=== PATIENT | female | born 1960 | race African-American/Black ===

== ENCOUNTER 2017-11-24 18:05 | Inpatient (IN) | payer OTHER, MEDICAID ==
[~2017-11-24] VITALS: Ht 175.3 cm; Wt 203.7 kg
[~2017-11-24 18:05] MED LIST: ACET250T3 PO; ALBUTEROL IH; AMLO5TAB88 PO; ATOR40TA70 PO; BECL8.7A6 INH; CARV25TA47 PO; CHOL100046 PO; DICL100G16 TP; FENT1PAT4 TP; FLUT100D IH; FURO-152 PO; GLIP10TA10 PO; INSLAN SQ; LOSA100T14 PO; METF500T4 PO; METO5TAB69 PO; OXYC-23 PO; PHEN30CA3 PO; POTA10TA2 PO; VENL-180 PO; [UNRECOGNIZED DRUG - CODE] PO; [UNRECOGNIZED DRUG - CODE] TP
[2017-11-24] MEDS ORDERED: MAGNESIUM 2 G PREMIX 50 ML IV STA (18:25)
[2017-11-24] MEDS ORDERED: METHYLPREDNISOLONE SOD SUCC 125 MG/2 ML VIAL IV STA (18:25)
[2017-11-24] MEDS ORDERED: IPRATROPIUM BROMIDE (0.02%) 0.5MG/2.5ML NEB HHN STA (18:25)
[2017-11-24] MEDS ORDERED: ALBUTEROL (0.083%) 2.5MG/3ML NEB HHN STA (18:25)
[2017-11-24 18:58] LABS: BASOPHILS % 0.4 % (0.0-2.0); EOSINOPHILS % 1.1 % (0.0-5.0); HEMATOCRIT. 36.2 % (36.0-48.0); HEMOGLOBIN. 11.7 g/dL (12.0-16.0); LYMPHOCYTES % 22.3 % (20.0-50.0); MEAN CORPUSCULAR HEMOGLOBIN 29.8 pg (28.0-32.0); MEAN CORPUSCULAR VOLUME 92.2 fL (81.0-99.0); MEAN PLATELET VOLUME 7.9 fl (7.4-10.4); MONOCYTES % 11.1 % (2.0-8.0); NEUTROPHILS % 65.1 % (40.0-76.0); PLATELET 250 x1000/uL (130-400); RED BLOOD CELL COUNT 3.93 mill/uL (4.2-5.4); RED CELL DISTRIBUTION WIDTH 13.9 % (11.6-14.6)
[2017-11-24 19:01] LABS: CHLORIDE 97 mEq/L (98-107)
[2017-11-24 19:04] LABS: PARTIAL THROMBOPLASTIN TIME 25.5 sec (23.4-31.0); PROTHROMBIN TIME 10.9 sec (9.4-11.6)
[2017-11-24] MEDS ORDERED: ONDANSETRON 4MG ODT PO ONE (19:15)
[2017-11-24] MEDS ORDERED: FUROSEMIDE 40MG/4ML VIAL IVP ONE (19:15)
[2017-11-24] MEDS ORDERED: POTASSIUM CHLORIDE 20MEQ TABLET SR PO ONE (19:15)
[2017-11-24] MEDS ORDERED: OXYCODONE HCL/ACETAMINOPHEN 5/325MG TABLET PO ONE (19:15)
[2017-11-24] MEDS ORDERED: LORAZEPAM 0.5MG TABLET PO PRN (20:00)
[2017-11-24] MEDS ORDERED: GUAIFENESIN 200MG/10ML SUGAR FREE UDC PO PRN (20:00)
[2017-11-24] MEDS ORDERED: CLONIDINE 0.1MG TABLET PO PRN (20:00)
[2017-11-24] MEDS ORDERED: DIPHENHYDRAMINE 50MG/ML VIAL IV PRN (20:00)
[2017-11-24] MEDS ORDERED: MAGNESIUM/ALUMINUM HYDROXIDE/SIMETHICONE 30ML UDC PO PRN (20:00)
[2017-11-24] MEDS ORDERED: IPRATROPIUM/ALBUTEROL 0.5-3(2.5)MG/3ML NEB INH PRN (20:00)
[2017-11-24] MEDS ORDERED: NA PHOS,M-B/NA PHOS,DI-BA ENEMA 118ML PR PRN (20:00)
[2017-11-24] MEDS ORDERED: DEXTROSE 50% WATER 50ML SYRINGE IV PRN (20:00)
[2017-11-24] MEDS ORDERED: DOCUSATE SODIUM 100MG CAPSULE PO PRN (20:00)
[2017-11-24] MEDS ORDERED: ZOLPIDEM TARTRATE 5MG TABLET PO PRN (20:00)
[2017-11-24] MEDS ORDERED: ACETAMINOPHEN 325MG TABLET PO PRN (20:00)
[2017-11-24] MEDS ORDERED: TRAMADOL 50MG TABLET PO PRN (20:00)
[2017-11-24] MEDS ORDERED: NITROGLYCERIN 0.4MG TABLET SL SL PRN (20:00)
[2017-11-24 20:05] LABS: CLARITY URINE CLEAR (CLEAR); COLOR URINE YELLOW (YELLOW); KETONES URINE NEGATIVE (NEGATIVE); LEUKOCYTE ESTERASE URINE 2+ (NEGATIVE); NITRITE URINE NEGATIVE (NEGATIVE); OCCULT BLOOD URINE NEGATIVE (NEGATIVE); PH URINE >=9.0 (4.5-8.0); PROTEIN URINE TRACE (NEGATIVE); SPECIFIC GRAVITY URINE 1.019 (1.005-1.030)
[2017-11-24] MEDS ORDERED: OSELTAMIVIR 75MG CAPSULE PO ONE (21:00)
[2017-11-24 21:02] LABS: *AMPHETAMINES SCREEN URINE NEGATIVE (NEGATIVE); *BARBITURATES SCREEN URINE NEGATIVE (NEGATIVE); *BENZODIAZEPINES SCREEN URINE NEGATIVE (NEGATIVE); *COCAINE SCREEN URINE NEGATIVE (NEGATIVE)
[2017-11-24 21:03] LABS: CANNABINOID URINE SCREEN NEGATIVE (NEGATIVE); METHADONE URINE SCREEN NEGATIVE (NEGATIVE); OPIATES URINE SCREEN PRESUMTIVE POSITIVE (NEGATIVE); PHENCYCLIDINE URINE SCREEN NEGATIVE (NEGATIVE)
[2017-11-24] MEDS: MORPHINE SULFATE 4 MG/ML CPJ (NOT FOR IM USE) IV PRN (22:24)
[2017-11-24] MEDS: ONDANSETRON HCL 4MG/2ML VIAL IV PRN (22:24)
[2017-11-24 22:55] LABS: CREATINE KINASE 365 IU/L (26-192)
[2017-11-24 22:56] LABS: CREATINE KINASE MB FRACTION 3.1 ng/mL (0.5-3.6)
[2017-11-25] VITALS (13 sets, daily range): BP systolic 106–156; BP diastolic 66–93
[2017-11-25] MEDS ORDERED: LEVOFLOXACIN 500MG PREMIX 100 ML IV SCH (02:00)
[2017-11-25] MEDS ORDERED: METHYLPREDNISOLONE SOD SUCC 125 MG/2 ML VIAL IV SCH (06:00)
[2017-11-25] MEDS: BLOOD SUGAR DIAGNOSTIC STRIP TEST SCH ×4 (06:50→21:14)
[2017-11-25] MEDS: MORPHINE SULFATE 4 MG/ML CPJ (NOT FOR IM USE) IV PRN ×2 (07:04→12:35)
[2017-11-25 07:35] LABS: CREATINE KINASE 263 IU/L (26-192)
[2017-11-25 07:37] LABS: CREATINE KINASE MB FRACTION 2.2 ng/mL (0.5-3.6)
[2017-11-25] MEDS: INSULIN LISPRO 100 UNITS/ML SUBCUT SCH ×4 (08:37→21:00)
[2017-11-25] MEDS: SPIRONOLACTONE 25MG TABLET PO SCH ×2 (08:38→21:43)
[2017-11-25] MEDS: GUAIFENESIN/DM 600MG/30MG ER TAB 12HR PO SCH ×2 (08:38→21:44)
[2017-11-25] MEDS: LISINOPRIL 20MG TABLET PO SCH ×2 (08:39→21:43)
[2017-11-25] MEDS: FUROSEMIDE 40MG/4ML VIAL IVP SCH ×2 (08:39→21:42)
[2017-11-25] MEDS: ENOXAPARIN 40MG/0.4ML SYR SUBCUT SCH ×2 (08:53→21:43)
[2017-11-25] MEDS ORDERED: ASPIRIN 325MG EC TABLET PO SCH (09:00)
[2017-11-25] MEDS ORDERED: PANTOPRAZOLE SODIUM 40 MG/VIAL IV SCH (09:00)
[2017-11-25] MEDS ORDERED: OSELTAMIVIR 75MG CAPSULE PO NR (12:30)
[2017-11-25] MEDS ORDERED: BUDESONIDE 0.5MG/2ML NEB HHN SCH (13:00)
[2017-11-25] MEDS: ONDANSETRON HCL 4MG/2ML VIAL IV PRN (15:15)
[2017-11-25] MEDS ORDERED: IPRATROPIUM/ALBUTEROL 0.5-3(2.5)MG/3ML NEB HHN SCH ×2 (18:00)
[2017-11-25] MEDS ORDERED: OSELTAMIVIR 75MG CAPSULE PO SCH (21:00)
[2017-11-25] MEDS ORDERED: INSULIN GLARGINE UD 100 UNITS/ML SYR SUBCUT SCH (22:00)
== END 2017-11-26 00:05 | disposition short-term general hospital (02) | DRG 871 ==
LOC: ER 18:05 → 3WST 19:44 → EDBEDREQ 19:46 → EDBEDREQTM 19:46 → ENRESERV 20:28
PROVIDERS: ADMIT Internal Medicine; ATTEND Internal Medicine
DX: A41.9 Sepsis, unspecified organism (principal); I50.33 Acute on chronic diastolic (congestive) heart failure; J96.00 Acute respiratory failure, unspecified whether with hypoxia or hypercapnia; E44.1 Mild protein-calorie malnutrition; D64.9 Anemia, unspecified; E11.9 Type 2 diabetes mellitus without complications; E66.2 Morbid (severe) obesity with alveolar hypoventilation; J44.1 Chronic obstructive pulmonary disease with (acute) exacerbation; N39.0 Urinary tract infection, site not specified; Z68.44 Body mass index [BMI] 60.0-69.9, adult; E87.6 Hypokalemia; G47.33 Obstructive sleep apnea (adult) (pediatric); I11.0 Hypertensive heart disease with heart failure; B96.89 Other specified bacterial agents as the cause of diseases classified elsewhere; G89.4 Chronic pain syndrome; J10.1 Influenza due to other identified influenza virus with other respiratory manifestations; M19.90 Unspecified osteoarthritis, unspecified site; Z74.01 Bed confinement status; Z91.19 Patient's noncompliance with other medical treatment and regimen; Z88.8 Allergy status to other drugs, medicaments and biological substances; Z79.84 Long term (current) use of oral hypoglycemic drugs; Z79.899 Other long term (current) drug therapy; Z82.49 Family history of ischemic heart disease and other diseases of the circulatory system; Z83.3 Family history of diabetes mellitus; Z80.9 Family history of malignant neoplasm, unspecified
CPT/HCPCS: 36415; 51702; 71045; 80053; 80061; 80305; 81003; 82550; 82553; 82962; 83036; 83605; 83880; 84484; 85025; 85610; 85730; 87040; 87077; 87086; 87186; 87804; 93005; 93306; 93970; 94640; 96365; 96375; 99291; C9113; J1650; J1815; J1940; J1956; J2270; J2405; J2930; J3475; J7611; J7620; J7626; Q0162; A4315

== ENCOUNTER 2021-08-05 22:30 | Inpatient (IN) | payer OTHER ==
[~2021-08-05] VITALS: Ht 172.7 cm; Wt 185.7 kg
[~2021-08-05 22:30] MED LIST changes: -AMLO5TAB88 PO; +CARV25TA47 MT; -CARV25TA47 PO; +CHOL100046 MT; -CHOL100046 PO; -FENT1PAT4 TP; -FLUT100D IH; +FLUT9.9S BOTHNSTRLS; +FURO-151 MT; -FURO-152 PO; -GLIP10TA10 PO; -INSLAN SQ; +INSLIS SUBCUT; +INSU100I28 SQ; -LOSA100T14 PO; +LOSA25TA26 MT; -METF500T4 PO; -METO5TAB69 PO; +METO5TAB7 MT; +MORP10CA8 PO; -PHEN30CA3 PO; +POTA-189 MT; -POTA10TA2 PO; +SERT-422 PO; -VENL-180 PO; -[UNRECOGNIZED DRUG - CODE] TP
[2021-08-05] MEDS ORDERED: METHYLPREDNISOLONE SOD SUCC 125 MG/2 ML VIAL IV STA (22:43)
[2021-08-05] MEDS ORDERED: IPRATROPIUM BROMIDE (0.02%) 0.5MG/2.5ML NEB HHN STA (22:43)
[2021-08-05] MEDS ORDERED: FUROSEMIDE 40MG/4ML VIAL IV ONE (22:45)
[2021-08-05] MEDS ORDERED: MAGNESIUM 2 G PREMIX 50 ML IV ONE (22:45)
[2021-08-05] MEDS ORDERED: ALBUTEROL (0.083%) 2.5MG/3ML NEB ONE (23:04)
[2021-08-05] MEDS: ALBUTEROL (0.083%) 2.5MG/3ML NEB HHN SCH ×2 (23:04→23:30)
[2021-08-05 23:17] LABS: BASOPHILS % 0.3 % (0.0-2.0); EOSINOPHILS % 1.1 % (0.0-5.0); HEMATOCRIT. 32.1 % (36.0-48.0); LYMPHOCYTES % 20.8 % (20.0-50.0); MEAN CORPUSCULAR HEMOGLOBIN 27.2 pg (28.0-32.0); MEAN CORPUSCULAR VOLUME 87.3 fL (81.0-99.0); MEAN PLATELET VOLUME 8.3 fl (7.4-10.4); MONOCYTES % 6.5 % (2.0-8.0); NEUTROPHILS % 71.3 % (40.0-76.0); PLATELET 315 x1000/uL (130-400); RED BLOOD CELL COUNT 3.68 mill/uL (4.2-5.4); RED CELL DISTRIBUTION WIDTH 14.1 % (11.6-14.6)
[2021-08-05 23:24] LABS: CHLORIDE 100 mEq/L (98-107)
[2021-08-06] MEDS ORDERED: AZITHROMYCIN 500MG/250ML 250 ML IV NR (00:15)
[2021-08-06] MEDS ORDERED: CEFTRIAXONE 1 G PREMIX 50 ML IV NR (00:15)
[2021-08-06] MEDS: ALBUTEROL (0.083%) 2.5MG/3ML NEB HHN SCH (00:52)
[2021-08-06 04:37] LABS: BG CARBOXYHEMOGLOBIN 0.4 % (0.5-1.5); BG DEOXYHEMOGLOBIN 5.2 % (0.0-5.0); BG FRACTION INSPIRED OXYGEN 36; BG HCO3 ACT 33.6 mmol/L (22.0-26.0); BG METHEMOGLOBIN 0.3 % (0.0-1.5); BG OXYGEN SATURATION 94.8 % (92.0-98.5); BG OXYHEMOGLOBIN 94.1 % (94.0-97.0); BG PCO2 64.9 mmHg (35.0-45.0); BG PH 7.332 (7.350-7.450); BG PO2 80.3 mmHg (75.0-100.0); BG SAMPLE SITE RIGHT RADIAL; BG TOTAL HEMOGLOBIN 11.4 g/dL (12.0-18.0); BG VENT MODE NASAL CANNULA
[2021-08-06] MEDS ORDERED: NALOXONE HCL 0.4MG/ML VIAL IV PRN (07:15)
[2021-08-06] MEDS ORDERED: CLONIDINE 0.1MG TABLET PO PRN (07:15)
[2021-08-06] MEDS ORDERED: DOCUSATE SODIUM 100MG CAPSULE PO PRN (07:15)
[2021-08-06] MEDS ORDERED: ACETAMINOPHEN 325MG TABLET PO PRN (07:15)
[2021-08-06] MEDS ORDERED: MAGNESIUM/ALUMINUM HYDROXIDE/SIMETHICONE 30ML UDC PO PRN (07:15)
[2021-08-06] MEDS ORDERED: ONDANSETRON HCL 4MG/2ML INJ IV PRN (07:15)
[2021-08-06] MEDS ORDERED: LEVOFLOXACIN 500MG PREMIX 100 ML IV SCH (07:30)
[2021-08-06] MEDS: FUROSEMIDE 40MG/4ML VIAL IV SCH ×2 (09:10→17:55)
[2021-08-06] MEDS ORDERED: DEXTROSE 50% WATER 50ML SYRINGE IV PRN (09:15)
[2021-08-06] MEDS: AMLODIPINE 10MG TABLET PO SCH (09:17)
[2021-08-06] MEDS: ENOXAPARIN 40MG/0.4ML SYR SUBCUT SCH ×2 (10:56→21:57)
[2021-08-06] MEDS: BLOOD SUGAR DIAGNOSTIC STRIP TEST SCH ×3 (12:16→21:00)
[2021-08-06] MEDS ORDERED: INSULIN REGULAR (HUMULIN R) 300UNITS/3ML VIAL SUBCUT NR (12:30)
[2021-08-06] MEDS: HYDROCODONE/ACETAMINOPHEN 5/325MG TABLET PO PRN ×2 (12:35→21:59)
[2021-08-06] MEDS ORDERED: INSULIN LISPRO (HIGH DOSE) 100 UNITS/ML SUBCUT SCH (13:20)
[2021-08-06] MEDS: LOSARTAN POTASSIUM 25 MG TABLET PO SCH (14:42)
[2021-08-06] MEDS: POTASSIUM CHLORIDE 20MEQ TABLET SR PO SCH ×2 (14:45→17:55)
[2021-08-06] MEDS: INSULIN LISPRO (HIGH DOSE) 100 UNITS/ML SUBCUT SCH ×3 (14:49→21:00)
[2021-08-06] MEDS: IPRATROPIUM/ALBUTEROL 0.5-3(2.5)MG/3ML NEB HHN PRN (15:14)
[2021-08-06] MEDS ORDERED: INSULIN GLARGINE UD 100 UNITS/ML SYR SUBCUT NR (15:15)
[2021-08-06] MEDS: ATORVASTATIN CALCIUM 40MG TABLET PO SCH (15:16)
[2021-08-06] MEDS: ACETAZOLAMIDE 250MG TABLET PO SCH (15:16)
[2021-08-06] MEDS: SERTRALINE HCL 50MG TABLET PO SCH (15:16)
[2021-08-06 17:00] VITALS: BP 141/79
[2021-08-06 18:00] VITALS: BP 141/79
[2021-08-06 20:00] VITALS: BP 164/97
[2021-08-07] VITALS: BP 131/84
[2021-08-07] MEDS: IPRATROPIUM/ALBUTEROL 0.5-3(2.5)MG/3ML NEB HHN PRN (01:37)
[2021-08-07 04:00] VITALS: BP 163/92
[2021-08-07] MEDS: HYDROCODONE/ACETAMINOPHEN 5/325MG TABLET PO PRN ×3 (05:57→23:22)
[2021-08-07 06:26] LABS: BASOPHILS % 0.4 % (0.0-2.0); EOSINOPHILS % 0.3 % (0.0-5.0); HEMATOCRIT. 30.7 % (36.0-48.0); HEMOGLOBIN. 9.9 g/dL (12.0-16.0); LYMPHOCYTES % 21.2 % (20.0-50.0); MEAN CORPUSCULAR HEMOGLOBIN 27.5 pg (28.0-32.0); MEAN CORPUSCULAR VOLUME 85.2 fL (81.0-99.0); MEAN PLATELET VOLUME 8.3 fl (7.4-10.4); MONOCYTES % 7.7 % (2.0-8.0); NEUTROPHILS % 70.4 % (40.0-76.0); PLATELET 309 x1000/uL (130-400); RED CELL DISTRIBUTION WIDTH 13.9 % (11.6-14.6)
[2021-08-07 06:28] LABS: CHLORIDE 99 mEq/L (98-107)
[2021-08-07 06:37] LABS: HDL CHOLESTEROL 44 mg/dL (40-59)
[2021-08-07 06:38] LABS: LDL CHOLESTEROL 102 mg/dL (5-100)
[2021-08-07] MEDS: BLOOD SUGAR DIAGNOSTIC STRIP TEST SCH ×4 (06:41→21:00)
[2021-08-07] MEDS: FUROSEMIDE 40MG/4ML VIAL IV SCH ×2 (07:10→16:37)
[2021-08-07] MEDS: INSULIN LISPRO (HIGH DOSE) 100 UNITS/ML SUBCUT SCH ×4 (07:14→23:26)
[2021-08-07 08:00] VITALS: BP 165/80
[2021-08-07] MEDS: SERTRALINE HCL 50MG TABLET PO SCH (09:31)
[2021-08-07] MEDS: ATORVASTATIN CALCIUM 40MG TABLET PO SCH (09:31)
[2021-08-07] MEDS: ENOXAPARIN 40MG/0.4ML SYR SUBCUT SCH ×2 (09:31→23:21)
[2021-08-07] MEDS: POTASSIUM CHLORIDE 20MEQ TABLET SR PO SCH ×2 (09:31→16:37)
[2021-08-07] MEDS: LOSARTAN POTASSIUM 25 MG TABLET PO SCH (09:31)
[2021-08-07] MEDS: AMLODIPINE 10MG TABLET PO SCH (09:33)
[2021-08-07] MEDS ORDERED: LIDOCAINE HCL/PF 1% 2ML VIAL ONE (10:00)
[2021-08-07 10:43] LABS: BG CARBOXYHEMOGLOBIN 0.3 % (0.5-1.5); BG DEOXYHEMOGLOBIN 5.9 % (0.0-5.0); BG FRACTION INSPIRED OXYGEN 36; BG HCO3 ACT 36.8 mmol/L (22.0-26.0); BG METHEMOGLOBIN 0.5 % (0.0-1.5); BG OXYGEN SATURATION 94.1 % (92.0-98.5); BG OXYHEMOGLOBIN 93.3 % (94.0-97.0); BG PCO2 69.1 mmHg (35.0-45.0); BG PH 7.344 (7.350-7.450); BG PO2 77.6 mmHg (75.0-100.0); BG SAMPLE SITE RIGHT RADIAL; BG TOTAL HEMOGLOBIN 11.3 g/dL (12.0-18.0); BG VENT MODE NASAL CANNULA
[2021-08-07] MEDS: LEVOFLOXACIN 750MG PREMIX 150 ML IV SCH (11:44)
[2021-08-07] MEDS: ACETAZOLAMIDE 250MG TABLET PO SCH (11:44)
[2021-08-07] MEDS: METHYLPREDNISOLONE SOD SUCC 40 MG/ML VIAL IV SCH ×2 (11:44→23:21)
[2021-08-07 12:00] VITALS: BP 154/78
[2021-08-07 16:00] VITALS: BP 157/80
[2021-08-07 20:00] VITALS: BP 184/92
[2021-08-07] MEDS ORDERED: INSULIN GLARGINE UD 100 UNITS/ML SYR SUBCUT SCH (22:00)
[2021-08-08] VITALS: BP 155/85
[2021-08-08 04:00] VITALS: BP 154/91
[2021-08-08] MEDS: BLOOD SUGAR DIAGNOSTIC STRIP TEST SCH ×3 (07:07→17:18)
[2021-08-08] MEDS: INSULIN LISPRO (HIGH DOSE) 100 UNITS/ML SUBCUT SCH ×3 (07:09→17:17)
[2021-08-08] MEDS: METHYLPREDNISOLONE SOD SUCC 40 MG/ML VIAL IV SCH ×2 (07:09→14:00)
[2021-08-08] MEDS: FUROSEMIDE 40MG/4ML VIAL IV SCH ×2 (07:09→17:15)
[2021-08-08] MEDS: LEVOFLOXACIN 750MG PREMIX 150 ML IV SCH (09:00)
[2021-08-08] MEDS: POTASSIUM CHLORIDE 20MEQ TABLET SR PO SCH ×2 (09:00→17:00)
[2021-08-08] MEDS: ENOXAPARIN 40MG/0.4ML SYR SUBCUT SCH (09:00)
[2021-08-08] MEDS: SERTRALINE HCL 50MG TABLET PO SCH (09:00)
[2021-08-08 09:15] VITALS: BP 157/83
[2021-08-08] MEDS: LOSARTAN POTASSIUM 25 MG TABLET PO SCH (10:10)
[2021-08-08] MEDS: ATORVASTATIN CALCIUM 40MG TABLET PO SCH (10:10)
[2021-08-08] MEDS: AMLODIPINE 10MG TABLET PO SCH (10:11)
[2021-08-08] MEDS: ACETAZOLAMIDE 250MG TABLET PO SCH (10:11)
[2021-08-08] MEDS ORDERED: NYSTATIN 100,000 UNITS/GM OINT 15GM TOP SCH (10:30)
[2021-08-08] MEDS: IPRATROPIUM/ALBUTEROL 0.5-3(2.5)MG/3ML NEB HHN PRN (11:29)
[2021-08-08 12:00] VITALS: BP 130/68
[2021-08-08 16:00] VITALS: BP 124/71
[2021-08-08] MEDS ORDERED: METHYLPREDNISOLONE SOD SUCC 40 MG/ML VIAL IV SCH (21:00)
== END 2021-08-08 19:40 | disposition home or self-care (01) | DRG 291 ==
LOC: ER 22:30 → 8WST 08-06 06:00 → EDBEDREQ 08-06 06:02 → ENRESERV 08-06 14:40
PROVIDERS: ADMIT Hospitalist; ATTEND Hospitalist
DX: I11.0 Hypertensive heart disease with heart failure (principal); J96.02 Acute respiratory failure with hypercapnia; E43 Unspecified severe protein-calorie malnutrition; I50.43 Acute on chronic combined systolic (congestive) and diastolic (congestive) heart failure; J96.01 Acute respiratory failure with hypoxia; J44.1 Chronic obstructive pulmonary disease with (acute) exacerbation; E66.2 Morbid (severe) obesity with alveolar hypoventilation; Z68.44 Body mass index [BMI] 60.0-69.9, adult; D63.8 Anemia in other chronic diseases classified elsewhere; E11.9 Type 2 diabetes mellitus without complications; Z20.822 Contact with and (suspected) exposure to COVID-19; I25.10 Atherosclerotic heart disease of native coronary artery without angina pectoris; Z88.8 Allergy status to other drugs, medicaments and biological substances; Z79.899 Other long term (current) drug therapy; Z79.4 Long term (current) use of insulin; Z99.81 Dependence on supplemental oxygen
CPT/HCPCS: 36415; 36600; 71045; 80053; 80061; 82375; 82805; 82962; 83605; 83880; 84484; 85025; 87426; 93005; 93306; 93970; 94640; 99291; C1893; J0456; J0696; J1650; J1815; J1940; J1956; J2920; J2930; J3475; J3490

== ENCOUNTER 2021-10-30 19:35 | Emergency (ER) | payer OTHER, MEDICAID ==
[~2021-10-30] VITALS: Ht 175.3 cm; Wt 186.0 kg
[~2021-10-30 19:35] MED LIST changes: -ALBUTEROL IH
[2021-10-30] MEDS ORDERED: ALBUTEROL (0.083%) 2.5MG/3ML NEB HHN STA (20:03)
[2021-10-30] MEDS ORDERED: IPRATROPIUM BROMIDE (0.02%) 0.5MG/2.5ML NEB HHN STA (20:03)
[2021-10-30] MEDS ORDERED: METHYLPREDNISOLONE SOD SUCC 125 MG/2 ML VIAL IV STA (20:03)
[2021-10-30 20:41] LABS: BASOPHILS % 0.4 % (0.0-2.0); EOSINOPHILS % 2.6 % (0.0-5.0); HEMATOCRIT. 30.7 % (36.0-48.0); HEMOGLOBIN. 10.1 g/dL (12.0-16.0); LYMPHOCYTES % 21.6 % (20.0-50.0); MEAN CORPUSCULAR HEMOGLOBIN 28.4 pg (28.0-32.0); MEAN CORPUSCULAR VOLUME 86.6 fL (81.0-99.0); MEAN PLATELET VOLUME 7.8 fl (7.4-10.4); MONOCYTES % 6.5 % (2.0-8.0); NEUTROPHILS % 68.9 % (40.0-76.0); PLATELET 255 x1000/uL (130-400); RED BLOOD CELL COUNT 3.55 mill/uL (4.2-5.4); RED CELL DISTRIBUTION WIDTH 14.6 % (11.6-14.6)
[2021-10-30 20:48] LABS: CHLORIDE 104 mEq/L (98-107)
[2021-10-30] MEDS ORDERED: FUROSEMIDE 40MG/4ML VIAL IVP ONE (22:30)
[2021-10-30] MEDS ORDERED: ACETAMINOPHEN 325MG TABLET PO ONE (23:15)
[2021-10-31] VITALS: BP 144/71
== END 2021-10-31 06:09 | disposition short-term general hospital (02) ==
LOC: ER 19:35
DX: J44.1 Chronic obstructive pulmonary disease with (acute) exacerbation (principal); I11.0 Hypertensive heart disease with heart failure; I50.9 Heart failure, unspecified; E11.9 Type 2 diabetes mellitus without complications; Z79.4 Long term (current) use of insulin
CPT/HCPCS: 36415; 71045; 80053; 83605; 83880; 84145; 84484; 85025; 87040; 93005; 94644; 96374; 96375; 99285; J1940; J2930

== ENCOUNTER 2021-12-01 15:09 | Emergency (ER) | payer OTHER ==
[~2021-12-01] VITALS: Ht 175.3 cm; Wt 181.0 kg
[2021-12-01] MEDS ORDERED: OMEPRAZOLE 20MG CAPSULE EXTENDED RELEASE PO ONE (15:30)
[2021-12-01] MEDS ORDERED: FUROSEMIDE 40MG/4ML VIAL IV ONE (15:30)
[2021-12-01] MEDS ORDERED: ASPIRIN 81MG TABLET PO ONE (15:30)
[2021-12-01 15:59] LABS: BASOPHILS % 0.5 % (0.0-2.0); EOSINOPHILS % 1.4 % (0.0-5.0); HEMATOCRIT. 31.8 % (36.0-48.0); HEMOGLOBIN. 10.2 g/dL (12.0-16.0); LYMPHOCYTES % 25.7 % (20.0-50.0); MEAN CORPUSCULAR HEMOGLOBIN 27.3 pg (28.0-32.0); MEAN CORPUSCULAR VOLUME 85.1 fL (81.0-99.0); MEAN PLATELET VOLUME 7.6 fl (7.4-10.4); NEUTROPHILS % 64.4 % (40.0-76.0); PLATELET 259 x1000/uL (130-400); RED BLOOD CELL COUNT 3.74 mill/uL (4.2-5.4); RED CELL DISTRIBUTION WIDTH 14.4 % (11.6-14.6)
[2021-12-01 16:05] LABS: CHLORIDE 100 mEq/L (98-107)
[2021-12-01 17:03] LABS: BG BASE EXCESS 7.5 mmol/L (-2.0-2.0); BG CARBOXYHEMOGLOBIN 0.3 % (0.5-1.5); BG DEOXYHEMOGLOBIN 3.1 % (0.0-5.0); BG FRACTION INSPIRED OXYGEN 36; BG METHEMOGLOBIN 0.4 % (0.0-1.5); BG OXYGEN SATURATION 96.9 % (92.0-98.5); BG OXYHEMOGLOBIN 96.2 % (94.0-97.0); BG PCO2 57.9 mmHg (35.0-45.0); BG PH 7.387 (7.350-7.450); BG PO2 90.8 mmHg (75.0-100.0); BG SAMPLE SITE RIGHT RADIAL; BG TOTAL HEMOGLOBIN 11.4 g/dL (12.0-18.0); BG VENT MODE NASAL CANNULA
[2021-12-01] MEDS ORDERED: NITROGLYCERIN 0.1MG/HR PATCH TOP ONE (19:30)
[2021-12-01] MEDS ORDERED: ACETAMINOPHEN WITH CODEINE 300/30MG TABLET PO ONE (21:30)
[2021-12-01] MEDS ORDERED: FUROSEMIDE 40MG/4ML VIAL IVP ONE (22:45)
[2021-12-02 01:30] VITALS: BP 150/96
== END 2021-12-02 02:00 | disposition short-term general hospital (02) ==
LOC: ER 15:09
DX: I11.0 Hypertensive heart disease with heart failure (principal); I50.9 Heart failure, unspecified; R10.13 Epigastric pain; J45.909 Unspecified asthma, uncomplicated; Z79.899 Other long term (current) drug therapy; Z20.822 Contact with and (suspected) exposure to COVID-19
CPT/HCPCS: 36415; 36600; 71045; 76705; 80053; 82375; 82805; 83690; 83880; 84484; 85025; 87426; 93005; 96374; 96376; 99291; J1940

== ENCOUNTER 2022-03-03 15:02 | Emergency (ER) | payer OTHER ==
[~2022-03-03] VITALS: Ht 165.1 cm; Wt 181.0 kg
[2022-03-03] MEDS ORDERED: METOCLOPRAMIDE HCL 10MG/2ML VIAL IV ONE (15:45)
[2022-03-03] MEDS ORDERED: DIPHENHYDRAMINE 50MG/ML VIAL IV ONE (15:45)
[2022-03-03] MEDS ORDERED: ACETAMINOPHEN 325MG TABLET PO ONE (15:45)
[2022-03-03 17:03] LABS: BASOPHILS % 0.5 % (0.0-2.0); EOSINOPHILS % 1.3 % (0.0-5.0); HEMATOCRIT. 34.4 % (36.0-48.0); HEMOGLOBIN. 10.7 g/dL (12.0-16.0); LYMPHOCYTES % 24.6 % (20.0-50.0); MEAN CORPUSCULAR VOLUME 86.9 fL (81.0-99.0); MEAN PLATELET VOLUME 8.2 fl (7.4-10.4); NEUTROPHILS % 64.6 % (40.0-76.0); PLATELET 245 x1000/uL (130-400); RED BLOOD CELL COUNT 3.96 mill/uL (4.2-5.4); RED CELL DISTRIBUTION WIDTH 15.1 % (11.6-14.6)
[2022-03-03 17:08] LABS: CHLORIDE 96 mEq/L (98-107)
[2022-03-03 17:19] LABS: ETHANOL BLOOD < 10 mg/dL
[2022-03-03] MEDS ORDERED: FUROSEMIDE 20MG/2ML VIAL IVP NR (18:45)
[2022-03-03] MEDS ORDERED: ALBU6.7H9 INH (19:20)
[2022-03-03] MEDS ORDERED: ONDA4TAB50 MT (19:20)
[2022-03-04] MEDS ORDERED: AMLODIPINE 5MG TABLET PO ONE (10:15)
[2022-03-04 10:39] VITALS: BP 156/77
== END 2022-03-04 11:44 | disposition home or self-care (01) ==
LOC: ER 15:02
DX: I11.0 Hypertensive heart disease with heart failure (principal); I50.9 Heart failure, unspecified; R19.7 Diarrhea, unspecified; R11.2 Nausea with vomiting, unspecified; D64.9 Anemia, unspecified; J44.9 Chronic obstructive pulmonary disease, unspecified; E66.9 Obesity, unspecified; Z68.44 Body mass index [BMI] 60.0-69.9, adult; Z87.891 Personal history of nicotine dependence; Z79.4 Long term (current) use of insulin
CPT/HCPCS: 36415; 70450; 71045; 74176; 80053; 80320; 83690; 83880; 84484; 85025; 93005; 96374; 96375; 99285; J1200; J1940; J2765; G0480

== ENCOUNTER 2022-04-30 14:05 | Inpatient (IN) | payer OTHER, MEDICAID ==
[~2022-04-30] VITALS: Ht 172.7 cm; Wt 169.2 kg
[~2022-04-30 14:05] MED LIST changes: +ALBU6.7H9 INH; +ONDA4TAB50 MT
[2022-04-30 14:54] LABS: BASOPHILS % 0.6 % (0.0-2.0); EOSINOPHILS % 0.7 % (0.0-5.0); HEMATOCRIT. 35.6 % (36.0-48.0); HEMOGLOBIN. 11.5 g/dL (12.0-16.0); LYMPHOCYTES % 22.4 % (20.0-50.0); MEAN CORPUSCULAR HEMOGLOBIN 28.3 pg (28.0-32.0); MEAN CORPUSCULAR VOLUME 87.9 fL (81.0-99.0); MEAN PLATELET VOLUME 8.4 fl (7.4-10.4); MONOCYTES % 5.9 % (2.0-8.0); NEUTROPHILS % 70.4 % (40.0-76.0); PLATELET 255 x1000/uL (130-400); RED BLOOD CELL COUNT 4.05 mill/uL (4.2-5.4); RED CELL DISTRIBUTION WIDTH 14.2 % (11.6-14.6)
[2022-04-30 15:00] LABS: CHLORIDE 91 mEq/L (98-107)
[2022-04-30 15:11] LABS: ETHANOL BLOOD < 10 mg/dL
[2022-04-30] MEDS ORDERED: ALBUTEROL (0.083%) 2.5MG/3ML NEB HHN ONE (15:15)
[2022-04-30] MEDS ORDERED: ALBUTEROL (0.083%) 2.5MG/3ML NEB HHN NR (15:15)
[2022-04-30] MEDS ORDERED: INSULIN REGULAR (HUMULIN R) 300UNITS/3ML VIAL SUBCUT NR (16:30)
[2022-04-30 17:16] LABS: *AMPHETAMINES SCREEN URINE NEGATIVE (NEGATIVE); *BARBITURATES SCREEN URINE NEGATIVE (NEGATIVE); *BENZODIAZEPINES SCREEN URINE NEGATIVE (NEGATIVE); *COCAINE SCREEN URINE NEGATIVE (NEGATIVE); CANNABINOID URINE SCREEN NEGATIVE (NEGATIVE); METHADONE URINE SCREEN NEGATIVE (NEGATIVE); OPIATES URINE SCREEN NEGATIVE (NEGATIVE); PHENCYCLIDINE URINE SCREEN NEGATIVE (NEGATIVE)
[2022-04-30] MEDS ORDERED: MORPHINE SULFATE 4 MG/ML CPJ (NOT FOR IM USE) IV ONE (19:45)
[2022-05-01] MEDS ORDERED: ONDANSETRON HCL 4MG/2ML INJ IV PRN (02:30)
[2022-05-01] MEDS ORDERED: HYDRALAZINE 20MG/ML VIAL IV PRN (02:30)
[2022-05-01] MEDS ORDERED: INSULIN GLARGINE 100 UNITS/ML SUBCUT SCH ×2 (02:30→22:00)
[2022-05-01] MEDS ORDERED: ACETAMINOPHEN 325MG TABLET PO PRN (02:30)
[2022-05-01] MEDS ORDERED: CLONIDINE 0.1MG TABLET PO PRN (02:30)
[2022-05-01] MEDS ORDERED: DIPHENHYDRAMINE 50MG/ML VIAL IV PRN (02:30)
[2022-05-01] MEDS ORDERED: MAGNESIUM/ALUMINUM HYDROXIDE/SIMETHICONE 30ML UDC PO PRN (02:30)
[2022-05-01] MEDS ORDERED: DEXTROSE 50% WATER 50ML SYRINGE IV PRN (02:30)
[2022-05-01] MEDS ORDERED: ZOLPIDEM TARTRATE 5MG TABLET PO PRN (02:30)
[2022-05-01] MEDS ORDERED: IPRATROPIUM/ALBUTEROL 0.5-3(2.5)MG/3ML NEB HHN PRN (02:30)
[2022-05-01] MEDS: ACETAMINOPHEN 325MG TABLET PO PRN (04:17)
[2022-05-01] MEDS ORDERED: METHYLPREDNISOLONE SOD SUCC 125 MG/2 ML VIAL IV SCH (06:00)
[2022-05-01] MEDS: SODIUM CHLORIDE 0.9% INJ 3ML FLUSH IVF SCH ×3 (06:37→22:24)
[2022-05-01] MEDS: FUROSEMIDE 40MG/4ML VIAL IVP SCH ×2 (07:14→18:09)
[2022-05-01] MEDS: INSULIN LISPRO 100 UNITS/ML SUBCUT SCH ×4 (08:20→21:00)
[2022-05-01] MEDS: BLOOD SUGAR DIAGNOSTIC STRIP TEST SCH ×4 (09:00→21:00)
[2022-05-01 09:30] VITALS: BP 137/72
[2022-05-01] MEDS ORDERED: INSULIN LISPRO 100 UNITS/ML SUBCUT SCH (11:30)
[2022-05-01] MEDS: AMLODIPINE 10MG TABLET PO SCH (11:33)
[2022-05-01] MEDS: LOSARTAN POTASSIUM 25 MG TABLET PO SCH (11:33)
[2022-05-01] MEDS: SERTRALINE HCL 50MG TABLET PO SCH (11:33)
[2022-05-01] MEDS: ENOXAPARIN 40MG/0.4ML SYR SUBCUT SCH ×2 (11:34→22:22)
[2022-05-01] MEDS ORDERED: CARSR60 MT (11:51)
[2022-05-01 12:00] VITALS: BP 126/66
[2022-05-01] MEDS ORDERED: INSULIN GLARGINE 100 UNITS/ML SUBCUT ONE (12:15)
[2022-05-01] MEDS ORDERED: OXYCODONE HCL/ACETAMINOPHEN 5/325MG TABLET PO NR (12:15)
[2022-05-01 13:29] LABS: BG BASE EXCESS 9.7 mmol/L (-2.0-2.0); BG CARBOXYHEMOGLOBIN 0.5 % (0.5-1.5); BG DEOXYHEMOGLOBIN 7.9 % (0.0-5.0); BG FRACTION INSPIRED OXYGEN 21; BG HCO3 ACT 36.3 mmol/L (22.0-26.0); BG METHEMOGLOBIN 0.3 % (0.0-1.5); BG OXYHEMOGLOBIN 91.3 % (94.0-97.0); BG PCO2 58.4 mmHg (35.0-45.0); BG PH 7.411 (7.350-7.450); BG PO2 66.8 mmHg (75.0-100.0); BG SAMPLE SITE RIGHT RADIAL; BG TOTAL HEMOGLOBIN 12.4 g/dL (12.0-18.0); BG VENT MODE ROOM AIR
[2022-05-01] MEDS ORDERED: INSULIN GLARGINE 100 UNITS/ML SUBCUT NR ×2 (13:30→21:00)
[2022-05-01] MEDS ORDERED: INSULIN LISPRO 100 UNITS/ML SUBCUT NR ×3 (13:30→21:30)
[2022-05-01 16:00] VITALS: BP 139/70
[2022-05-01 19:40] VITALS: BP 109/66
[2022-05-01] MEDS ORDERED: METOLAZONE 5MG TABLET PO NR (21:00)
[2022-05-01] MEDS: ATORVASTATIN CALCIUM 40MG TABLET PO SCH (22:21)
[2022-05-01] MEDS: OXYCODONE HCL/ACETAMINOPHEN 5/325MG TABLET PO PRN (23:05)
[2022-05-02] VITALS (7 sets, daily range): BP systolic 100–128; BP diastolic 53–75
[2022-05-02] MEDS: ACETAMINOPHEN 325MG TABLET PO PRN ×4 (01:33→20:12)
[2022-05-02] MEDS: GUAIFENESIN 200MG/10ML SUGAR FREE UDC PO PRN ×3 (01:33→12:30)
[2022-05-02] MEDS: IPRATROPIUM/ALBUTEROL 0.5-3(2.5)MG/3ML NEB HHN SCH ×5 (04:00→22:13)
[2022-05-02] MEDS: FUROSEMIDE 40MG/4ML VIAL IVP SCH ×2 (06:18→16:32)
[2022-05-02] MEDS: BLOOD SUGAR DIAGNOSTIC STRIP TEST SCH ×4 (06:18→21:09)
[2022-05-02] MEDS: SODIUM CHLORIDE 0.9% INJ 3ML FLUSH IVF SCH ×3 (06:18→22:09)
[2022-05-02] MEDS: BUDESONIDE 0.5MG/2ML NEB HHN SCH ×2 (08:01→22:13)
[2022-05-02] MEDS: INSULIN LISPRO 100 UNITS/ML SUBCUT SCH ×4 (08:02→21:13)
[2022-05-02] MEDS: LOSARTAN POTASSIUM 25 MG TABLET PO SCH (08:59)
[2022-05-02] MEDS: SERTRALINE HCL 50MG TABLET PO SCH (08:59)
[2022-05-02] MEDS: ENOXAPARIN 40MG/0.4ML SYR SUBCUT SCH ×2 (09:00→20:12)
[2022-05-02] MEDS: AMLODIPINE 10MG TABLET PO SCH (09:00)
[2022-05-02] MEDS: OXYCODONE HCL/ACETAMINOPHEN 5/325MG TABLET PO PRN (09:00)
[2022-05-02] MEDS ORDERED: INSULIN GLARGINE 100 UNITS/ML SUBCUT SCH ×2 (10:00→22:00)
[2022-05-02 11:34] LABS: PHOSPHORUS 3.4 mg/dL (2.5-4.9)
[2022-05-02] MEDS ORDERED: POTASSIUM CHLORIDE 20MEQ TABLET SR PO NR ×3 (12:00→20:00)
[2022-05-02] MEDS ORDERED: NALOXONE HCL 0.4MG/ML VIAL IV PRN (13:45)
[2022-05-02] MEDS ORDERED: BENZONATATE 100MG CAPSULE PO PRN ×2 (15:45→23:45)
[2022-05-02] MEDS ORDERED: METOLAZONE 5MG TABLET PO NR (16:00)
[2022-05-02] MEDS: GUAIFENESIN-DM 200MG-20MG/10ML UDC PO PRN ×2 (16:32→20:13)
[2022-05-02] MEDS: ATORVASTATIN CALCIUM 40MG TABLET PO SCH (20:12)
[2022-05-02] MEDS ORDERED: METHYLPREDNISOLONE SOD SUCC 40 MG/ML VIAL IV SCH (22:00)
[2022-05-03] MEDS ORDERED: POTASSIUM CHLORIDE 20MEQ TABLET SR PO SCH (09:00)
== END 2022-05-02 23:40 | disposition short-term general hospital (02) | DRG 189 ==
LOC: ER 14:05 → MICUSO 05-01 01:56 → EDBEDREQTM 05-01 02:00 → EDBEDREQDT 05-01 02:00 → EDBEDREQ 05-01 02:00 → 6WST 05-01 08:59
PROVIDERS: ADMIT Internal Medicine; ATTEND Internal Medicine
DX: J96.21 Acute and chronic respiratory failure with hypoxia (principal); I50.43 Acute on chronic combined systolic (congestive) and diastolic (congestive) heart failure; J44.1 Chronic obstructive pulmonary disease with (acute) exacerbation; E44.0 Moderate protein-calorie malnutrition; E66.2 Morbid (severe) obesity with alveolar hypoventilation; E87.1 Hypo-osmolality and hyponatremia; Z68.43 Body mass index [BMI] 50.0-59.9, adult; I11.0 Hypertensive heart disease with heart failure; J96.22 Acute and chronic respiratory failure with hypercapnia; Z20.822 Contact with and (suspected) exposure to COVID-19; M19.90 Unspecified osteoarthritis, unspecified site; E11.65 Type 2 diabetes mellitus with hyperglycemia; E78.5 Hyperlipidemia, unspecified; F17.200 Nicotine dependence, unspecified, uncomplicated; F32.A Depression, unspecified; F12.90 Cannabis use, unspecified, uncomplicated; Z74.01 Bed confinement status; Z82.49 Family history of ischemic heart disease and other diseases of the circulatory system; Z99.81 Dependence on supplemental oxygen; Z79.899 Other long term (current) drug therapy; Z88.8 Allergy status to other drugs, medicaments and biological substances
CPT/HCPCS: 36415; 36600; 71045; 80048; 80053; 80305; 80320; 82375; 82805; 82962; 83036; 83735; 83880; 84100; 84484; 85025; 87426; 93005; 94640; 99285; A6261; C1893; C9803; J1650; J1815; J1940; J2270; J2920; J2930; J7626; G0480

== ENCOUNTER 2022-06-02 13:41 | Inpatient (IN) | payer OTHER, MEDICAID ==
[2022-06-02] VITALS (10 sets, daily range): BP systolic 100–156; BP diastolic 58–85
[~2022-06-02] VITALS: Ht 175.3 cm; Wt 161.5 kg
[~2022-06-02 13:41] MED LIST changes: +ALBU6.7H3 INH; -ALBU6.7H9 INH; +CARSR60 MT; -MORP10CA8 PO
[2022-06-02] MEDS ORDERED: SODIUM CHLORIDE 0.9% 1,000 ML IV ONE (15:30)
[2022-06-02 15:58] LABS: BASOPHILS % 0.5 % (0.0-2.0); EOSINOPHILS % 0.4 % (0.0-5.0); HEMATOCRIT. 34.9 % (36.0-48.0); HEMOGLOBIN. 11.2 g/dL (12.0-16.0); MEAN CORPUSCULAR HEMOGLOBIN 27.9 pg (28.0-32.0); MEAN CORPUSCULAR VOLUME 86.9 fL (81.0-99.0); MEAN PLATELET VOLUME 8.3 fl (7.4-10.4); MONOCYTES % 7.5 % (2.0-8.0); NEUTROPHILS % 71.6 % (40.0-76.0); PLATELET 397 x1000/uL (130-400); RED BLOOD CELL COUNT 4.01 mill/uL (4.2-5.4); RED CELL DISTRIBUTION WIDTH 13.7 % (11.6-14.6)
[2022-06-02 16:03] LABS: BG BASE EXCESS 16.2 mmol/L (-2.0-2.0); BG CARBOXYHEMOGLOBIN 1.3 % (0.5-1.5); BG DEOXYHEMOGLOBIN 4.5 % (0.0-5.0); BG FRACTION INSPIRED OXYGEN 40; BG HCO3 ACT 44.8 mmol/L (22.0-26.0); BG METHEMOGLOBIN 0.5 % (0.0-1.5); BG OXYGEN SATURATION 95.4 % (92.0-98.5); BG OXYHEMOGLOBIN 93.7 % (94.0-97.0); BG PCO2 77.7 mmHg (35.0-45.0); BG PH 7.379 (7.350-7.450); BG SAMPLE SITE RIGHT RADIAL; BG TOTAL HEMOGLOBIN 12.1 g/dL (12.0-18.0); BG VENT MODE NASAL CANNULA
[2022-06-02 16:11] LABS: CHLORIDE 74 mEq/L (98-107)
[2022-06-02 16:21] LABS: PHOSPHORUS 3.1 mg/dL (2.5-4.9)
[2022-06-02 16:27] LABS: BETA HYDROXYBUTYRATE 0.5 mMol/L (0.0-0.3)
[2022-06-02] MEDS ORDERED: POTASSIUM CHLORIDE 20MEQ/PACKET PO ONE ×3 (16:45→18:15)
[2022-06-02] MEDS ORDERED: KCL 10MEQ/50ML PREMIX 50 ML IV ONE (16:45)
[2022-06-02] MEDS ORDERED: MAGNESIUM 1 G PREMIX 100 ML IV ONE (17:00)
[2022-06-02] MEDS ORDERED: INSULIN REGULAR (DRIP) 100 UNITS in SODIUM CHLORIDE 0.9% 99 ML IV SCH (20:00)
[2022-06-02] MEDS ORDERED: INSULIN REGULAR 100U/100ML PMX 100 ML IV SCH ×2 (20:01→21:30)
[2022-06-02 20:14] LABS: CLARITY URINE TURBID (CLEAR); COLOR URINE YELLOW (YELLOW); KETONES URINE NEGATIVE (NEGATIVE); LEUKOCYTE ESTERASE URINE 3+ (NEGATIVE); NITRITE URINE NEGATIVE (NEGATIVE); OCCULT BLOOD URINE 2+ (NEGATIVE); PROTEIN URINE 1+ (NEGATIVE); SPECIFIC GRAVITY URINE 1.022 (1.005-1.030); UROBILINOGEN URINE 0.2 E.U./dL (0.2-1.0)
[2022-06-02] MEDS ORDERED: CEFTRIAXONE 1 G PREMIX 50 ML IV SCH (21:30)
[2022-06-02] MEDS ORDERED: SODIUM CHLORIDE 0.9% 1,000 ML IV SCH (21:30)
[2022-06-02] MEDS ORDERED: DEXTROSE 50% WATER 50ML SYRINGE IV PRN ×2 (21:30)
[2022-06-02] MEDS ORDERED: BLOOD SUGAR DIAGNOSTIC STRIP TEST SCH (21:30)
[2022-06-02] MEDS: BLOOD SUGAR DIAGNOSTIC STRIP TEST SCH ×2 (22:00→23:00)
[2022-06-02] MEDS: ENOXAPARIN 40MG/0.4ML SYR SUBCUT SCH (22:32)
[2022-06-02 22:40] LABS: *AMPHETAMINES SCREEN URINE NEGATIVE (NEGATIVE); *BARBITURATES SCREEN URINE NEGATIVE (NEGATIVE); *BENZODIAZEPINES SCREEN URINE NEGATIVE (NEGATIVE); *COCAINE SCREEN URINE NEGATIVE (NEGATIVE); CANNABINOID URINE SCREEN NEGATIVE (NEGATIVE); METHADONE URINE SCREEN NEGATIVE (NEGATIVE); OPIATES URINE SCREEN NEGATIVE (NEGATIVE); PHENCYCLIDINE URINE SCREEN NEGATIVE (NEGATIVE)
[2022-06-02] MEDS: CEFTRIAXONE 1,000 MG in DEXTROSE 5% WATER 50 ML IV SCH (22:48)
[2022-06-02] MEDS: INSULIN REGULAR 100U/100ML PMX 100 ML IV SCH (23:24)
[2022-06-02 23:29] LABS: CHLORIDE 82 mEq/L (98-107)
[2022-06-02 23:44] LABS: CREATINE KINASE MB FRACTION < 1.0 ng/mL (0.5-3.6)
[2022-06-03] VITALS (28 sets, daily range): BP systolic 105–198; BP diastolic 53–103
[2022-06-03] MEDS: BLOOD SUGAR DIAGNOSTIC STRIP TEST SCH ×11 (01:00→21:04)
[2022-06-03] MEDS: SODIUM CHL 0.9% + KCL 20MEQ/L 1,000 ML IV SCH ×2 (02:04→08:54)
[2022-06-03] MEDS: INSULIN REGULAR 100U/100ML PMX 100 ML IV SCH (04:18)
[2022-06-03 06:15] LABS: CHLORIDE 89 mEq/L (98-107)
[2022-06-03 06:31] LABS: CREATINE KINASE MB FRACTION < 1.0 ng/mL (0.5-3.6); HDL CHOLESTEROL 33 mg/dL (40-59); LDL CHOLESTEROL 80 mg/dL (5-100)
[2022-06-03 06:32] LABS: BASOPHILS % 0.3 % (0.0-2.0); EOSINOPHILS % 0.9 % (0.0-5.0); HEMATOCRIT. 32.8 % (36.0-48.0); HEMOGLOBIN. 10.6 g/dL (12.0-16.0); LYMPHOCYTES % 25.8 % (20.0-50.0); MEAN CORPUSCULAR VOLUME 83.6 fL (81.0-99.0); MEAN PLATELET VOLUME 7.9 fl (7.4-10.4); MONOCYTES % 10.3 % (2.0-8.0); NEUTROPHILS % 62.7 % (40.0-76.0); PLATELET 365 x1000/uL (130-400); RED BLOOD CELL COUNT 3.92 mill/uL (4.2-5.4); RED CELL DISTRIBUTION WIDTH 13.5 % (11.6-14.6)
[2022-06-03] MEDS ORDERED: DEXTROSE 50% WATER 50ML SYRINGE IV PRN (07:15)
[2022-06-03] MEDS ORDERED: INSULIN GLARGINE 100 UNITS/ML SUBCUT NR (07:15)
[2022-06-03] MEDS ORDERED: NALOXONE HCL 0.4MG/ML VIAL IV PRN (07:30)
[2022-06-03] MEDS: HYDROCODONE/ACETAMINOPHEN 10/325MG TABLET PO PRN ×2 (07:35→21:00)
[2022-06-03] MEDS: INSULIN LISPRO 100 UNITS/ML SUBCUT SCH ×4 (08:20→21:19)
[2022-06-03] MEDS: ENOXAPARIN 40MG/0.4ML SYR SUBCUT SCH ×2 (10:00→21:20)
[2022-06-03] MEDS: SERTRALINE HCL 50MG TABLET PO SCH (11:00)
[2022-06-03] MEDS: FOLIC ACID 1MG TABLET PO SCH (11:00)
[2022-06-03] MEDS: INSULIN GLARGINE 100 UNITS/ML SUBCUT SCH ×2 (11:00→21:17)
[2022-06-03] MEDS: DILTIAZEM HCL 30MG TABLET PO SCH ×3 (12:56→23:33)
[2022-06-03] MEDS: ATORVASTATIN CALCIUM 40MG TABLET PO SCH (21:00)
[2022-06-03] MEDS: CEFTRIAXONE 1,000 MG in DEXTROSE 5% WATER 50 ML IV SCH (21:21)
[2022-06-03] MEDS ORDERED: INSULIN LISPRO 100 UNITS/ML SUBCUT NR (23:30)
[2022-06-03] MEDS: GUAIFENESIN-DM 200MG-20MG/10ML UDC PO PRN (23:32)
[2022-06-04] VITALS (25 sets, daily range): BP systolic 103–158; BP diastolic 51–95
[2022-06-04] MEDS: GUAIFENESIN-DM 200MG-20MG/10ML UDC PO PRN ×2 (04:21→21:10)
[2022-06-04 06:55] LABS: BASOPHILS % 0.3 % (0.0-2.0); HEMATOCRIT. 32.2 % (36.0-48.0); HEMOGLOBIN. 10.6 g/dL (12.0-16.0); LYMPHOCYTES % 19.9 % (20.0-50.0); MEAN CORPUSCULAR VOLUME 84.6 fL (81.0-99.0); MONOCYTES % 8.1 % (2.0-8.0); NEUTROPHILS % 70.7 % (40.0-76.0); PLATELET 348 x1000/uL (130-400); RED CELL DISTRIBUTION WIDTH 13.6 % (11.6-14.6)
[2022-06-04] MEDS: DILTIAZEM HCL 30MG TABLET PO SCH ×3 (07:08→18:02)
[2022-06-04 07:09] LABS: CHLORIDE 88 mEq/L (98-107)
[2022-06-04] MEDS: BLOOD SUGAR DIAGNOSTIC STRIP TEST SCH ×4 (07:50→20:57)
[2022-06-04] MEDS: INSULIN LISPRO 100 UNITS/ML SUBCUT SCH ×4 (08:20→21:08)
[2022-06-04] MEDS: INSULIN GLARGINE 100 UNITS/ML SUBCUT SCH ×2 (09:43→21:09)
[2022-06-04] MEDS: FOLIC ACID 1MG TABLET PO SCH (09:44)
[2022-06-04] MEDS: SERTRALINE HCL 50MG TABLET PO SCH (09:45)
[2022-06-04] MEDS: ENOXAPARIN 40MG/0.4ML SYR SUBCUT SCH ×2 (10:00→21:07)
[2022-06-04] MEDS: ATORVASTATIN CALCIUM 40MG TABLET PO SCH (21:06)
[2022-06-04] MEDS: CEFTRIAXONE 1,000 MG in DEXTROSE 5% WATER 50 ML IV SCH (22:24)
[2022-06-05] VITALS (41 sets, daily range): BP systolic 100–164; BP diastolic 49–88
[2022-06-05] MEDS: DILTIAZEM HCL 30MG TABLET PO SCH ×4 (00:35→18:17)
[2022-06-05] MEDS: HYDROCODONE/ACETAMINOPHEN 10/325MG TABLET PO PRN ×3 (01:22→12:11)
[2022-06-05] MEDS: GUAIFENESIN-DM 200MG-20MG/10ML UDC PO PRN ×2 (03:40→12:08)
[2022-06-05 06:06] LABS: BASOPHILS % 0.3 % (0.0-2.0); HEMATOCRIT. 31.8 % (36.0-48.0); HEMOGLOBIN. 10.4 g/dL (12.0-16.0); LYMPHOCYTES % 19.4 % (20.0-50.0); MEAN CORPUSCULAR HEMOGLOBIN 27.8 pg (28.0-32.0); MEAN CORPUSCULAR VOLUME 84.6 fL (81.0-99.0); MEAN PLATELET VOLUME 7.5 fl (7.4-10.4); MONOCYTES % 9.9 % (2.0-8.0); NEUTROPHILS % 69.4 % (40.0-76.0); PLATELET 319 x1000/uL (130-400); RED BLOOD CELL COUNT 3.76 mill/uL (4.2-5.4); RED CELL DISTRIBUTION WIDTH 13.6 % (11.6-14.6)
[2022-06-05 06:08] LABS: CHLORIDE 88 mEq/L (98-107)
[2022-06-05] MEDS: BLOOD SUGAR DIAGNOSTIC STRIP TEST SCH ×4 (08:22→21:37)
[2022-06-05] MEDS: SERTRALINE HCL 50MG TABLET PO SCH (08:39)
[2022-06-05] MEDS: FOLIC ACID 1MG TABLET PO SCH (08:39)
[2022-06-05] MEDS: INSULIN LISPRO 100 UNITS/ML SUBCUT SCH ×4 (08:40→21:41)
[2022-06-05] MEDS ORDERED: POTASSIUM CHLORIDE INJ 40 MEQ in DEXT 5% WATER 250 ML IV ONE (09:30)
[2022-06-05] MEDS: KCL 20MEQ/100ML X 2 FOR TOTAL KCL 40MEQ/200ML IV SCH ×2 (09:46→11:45)
[2022-06-05] MEDS: ENOXAPARIN 40MG/0.4ML SYR SUBCUT SCH ×2 (09:48→22:38)
[2022-06-05] MEDS: INSULIN GLARGINE 100 UNITS/ML SUBCUT SCH (09:49)
[2022-06-05] MEDS ORDERED: POTASSIUM CHLORIDE 20MEQ TABLET SR PO NR (11:00)
[2022-06-05] MEDS: BENZONATATE 100MG CAPSULE PO SCH ×2 (14:34→21:38)
[2022-06-05] MEDS: ATORVASTATIN CALCIUM 40MG TABLET PO SCH (21:38)
[2022-06-05] MEDS ORDERED: INSULIN GLARGINE 100 UNITS/ML SUBCUT SCH (22:00)
[2022-06-05] MEDS: CEFTRIAXONE 1,000 MG in DEXTROSE 5% WATER 50 ML IV SCH (22:38)
[2022-06-06 00:04] VITALS: BP 119/76
[2022-06-06 00:34] VITALS: BP 128/68
[2022-06-06 00:47] VITALS: BP 128/68
[2022-06-06] MEDS: DILTIAZEM HCL 30MG TABLET PO SCH (01:00)
[2022-06-06] MEDS: GUAIFENESIN-DM 200MG-20MG/10ML UDC PO PRN (01:00)
[2022-06-06 01:04] VITALS: BP 155/65
== END 2022-06-06 01:20 | disposition short-term general hospital (02) | DRG 871 ==
LOC: ER 13:41 → CVICU 16:55 → EDBEDREQ 16:58
PROVIDERS: ADMIT Internal Medicine; ATTEND Internal Medicine
DX: A41.9 Sepsis, unspecified organism (principal); G93.41 Metabolic encephalopathy; J96.02 Acute respiratory failure with hypercapnia; I50.32 Chronic diastolic (congestive) heart failure; Z68.43 Body mass index [BMI] 50.0-59.9, adult; B37.49 Other urogenital candidiasis; E11.65 Type 2 diabetes mellitus with hyperglycemia; I11.0 Hypertensive heart disease with heart failure; J44.9 Chronic obstructive pulmonary disease, unspecified; D64.9 Anemia, unspecified; E66.01 Morbid (severe) obesity due to excess calories; I73.89 Other specified peripheral vascular diseases; E78.5 Hyperlipidemia, unspecified; E87.6 Hypokalemia; G47.33 Obstructive sleep apnea (adult) (pediatric); G47.36 Sleep related hypoventilation in conditions classified elsewhere; Z88.8 Allergy status to other drugs, medicaments and biological substances; Z82.49 Family history of ischemic heart disease and other diseases of the circulatory system; Z79.4 Long term (current) use of insulin; Z74.01 Bed confinement status; Z99.81 Dependence on supplemental oxygen
CPT/HCPCS: 36415; 36600; 71045; 80048; 80053; 80061; 80305; 81003; 82010; 82375; 82553; 82805; 82962; 83036; 83735; 83880; 84100; 84443; 84484; 85025; 87426; 93005; 99291; J0696; J1650; J1815; J3475; J3480; J7030; J7050; J7060

== ENCOUNTER 2022-09-02 00:01 | Inpatient (IN) | payer OTHER, MEDICAID ==
[~2022-09-02] VITALS: Ht 165.1 cm; Wt 162.4 kg
[2022-09-02 01:12] LABS: BASOPHILS % 0.4 % (0.0-2.0); EOSINOPHILS % 2.2 % (0.0-5.0); HEMATOCRIT. 36.3 % (36.0-48.0); HEMOGLOBIN. 11.5 g/dL (12.0-16.0); LYMPHOCYTES % 24.3 % (20.0-50.0); MEAN CORPUSCULAR HEMOGLOBIN 27.7 pg (28.0-32.0); MEAN CORPUSCULAR VOLUME 87.5 fL (81.0-99.0); MEAN PLATELET VOLUME 7.8 fl (7.4-10.4); MONOCYTES % 6.9 % (2.0-8.0); NEUTROPHILS % 66.2 % (40.0-76.0); PLATELET 275 x1000/uL (130-400); RED BLOOD CELL COUNT 4.15 mill/uL (4.2-5.4); RED CELL DISTRIBUTION WIDTH 13.3 % (11.6-14.6)
[2022-09-02 01:24] LABS: CHLORIDE 106 mEq/L (98-107)
[2022-09-02 01:33] LABS: ETHANOL BLOOD < 10 mg/dL
[2022-09-02 01:36] LABS: INR 0.9; PROTHROMBIN TIME 10.2 sec (9.6-11.0)
[2022-09-02] MEDS ORDERED: ONDANSETRON HCL 4MG/2ML INJ IV PRN (08:45)
[2022-09-02] MEDS ORDERED: IPRATROPIUM/ALBUTEROL 0.5-3(2.5)MG/3ML NEB NEB PRN (08:45)
[2022-09-02] MEDS ORDERED: MAGNESIUM/ALUMINUM HYDROXIDE/SIMETHICONE 30ML UDC PO PRN (08:45)
[2022-09-02] MEDS ORDERED: ACETAMINOPHEN 325MG TABLET PO PRN ×2 (08:45)
[2022-09-02] MEDS ORDERED: CLONIDINE 0.1MG TABLET PO PRN (08:45)
[2022-09-02] MEDS ORDERED: GUAIFENESIN 200MG/10ML SUGAR FREE UDC PO PRN (08:45)
[2022-09-02] MEDS ORDERED: DOCUSATE SODIUM 100MG CAPSULE PO PRN (08:45)
[2022-09-02] MEDS: DICLOFENAC SODIUM 1% GEL 50GM TOP SCH ×4 (09:00→21:19)
[2022-09-02] MEDS: LOSARTAN POTASSIUM 25 MG TABLET PO SCH (09:27)
[2022-09-02] MEDS: CARVEDILOL 12.5MG TABLET PO SCH ×2 (09:27→21:44)
[2022-09-02] MEDS: SERTRALINE HCL 50MG TABLET PO SCH (09:27)
[2022-09-02] MEDS: HYDROCODONE/ACETAMINOPHEN 5/325MG TABLET PO PRN (09:28)
[2022-09-02] MEDS ORDERED: DEXTROSE 50% WATER 50ML SYRINGE IV PRN (09:30)
[2022-09-02] MEDS ORDERED: NALOXONE HCL 0.4MG/ML VIAL IV PRN (09:45)
[2022-09-02] MEDS ORDERED: IPRATROPIUM BROMIDE (0.02%) 0.5MG/2.5ML NEB HHN PRN (09:45)
[2022-09-02] MEDS ORDERED: ALBUTEROL (0.083%) 2.5MG/3ML NEB HHN PRN (09:45)
[2022-09-02 10:10] VITALS: BP 152/94
[2022-09-02 11:00] VITALS: BP 152/94
[2022-09-02] MEDS: ACETAZOLAMIDE 250MG TABLET PO SCH (11:40)
[2022-09-02] MEDS: DILTIAZEM HCL 60MG TABLET PO SCH ×2 (11:41→21:44)
[2022-09-02] MEDS: ENOXAPARIN 30MG/0.3ML SYR SUBCUT SCH ×2 (11:42→22:00)
[2022-09-02] MEDS: BLOOD SUGAR DIAGNOSTIC STRIP TEST SCH ×3 (11:42→21:19)
[2022-09-02 12:00] VITALS: BP 150/90
[2022-09-02] MEDS: INSULIN LISPRO 100 UNITS/ML SUBCUT SCH ×5 (12:06→21:00)
[2022-09-02] MEDS: INSULIN GLARGINE 100 UNITS/ML SUBCUT SCH (12:45)
[2022-09-02 16:00] VITALS: BP 119/64
[2022-09-02 20:34] VITALS: BP 149/76
[2022-09-02] MEDS: ATORVASTATIN CALCIUM 40MG TABLET PO SCH (21:44)
[2022-09-03 00:24] VITALS: BP 124/76
[2022-09-03 04:00] VITALS: BP 140/74
[2022-09-03 07:29] LABS: BASOPHILS % 0.5 % (0.0-2.0); EOSINOPHILS % 2.1 % (0.0-5.0); HEMATOCRIT. 34.7 % (36.0-48.0); HEMOGLOBIN. 11.2 g/dL (12.0-16.0); LYMPHOCYTES % 29.8 % (20.0-50.0); MEAN CORPUSCULAR HEMOGLOBIN 28.3 pg (28.0-32.0); MEAN CORPUSCULAR VOLUME 87.7 fL (81.0-99.0); MEAN PLATELET VOLUME 8.3 fl (7.4-10.4); MONOCYTES % 6.8 % (2.0-8.0); NEUTROPHILS % 60.8 % (40.0-76.0); PLATELET 276 x1000/uL (130-400); RED BLOOD CELL COUNT 3.96 mill/uL (4.2-5.4); RED CELL DISTRIBUTION WIDTH 13.4 % (11.6-14.6)
[2022-09-03] MEDS: BLOOD SUGAR DIAGNOSTIC STRIP TEST SCH ×4 (07:40→21:42)
[2022-09-03 08:00] VITALS: BP 141/79
[2022-09-03] MEDS: INSULIN LISPRO 100 UNITS/ML SUBCUT SCH ×7 (08:10→21:54)
[2022-09-03 08:18] LABS: CHLORIDE 102 mEq/L (98-107)
[2022-09-03 08:52] LABS: VITAMIN B12 SERUM 504 pg/mL (211-911)
[2022-09-03] MEDS: DICLOFENAC SODIUM 1% GEL 50GM TOP SCH ×4 (09:00→21:42)
[2022-09-03 09:12] LABS: HDL CHOLESTEROL 43 mg/dL (40-59); LDL CHOLESTEROL 143 mg/dL (5-100); PHOSPHORUS 3.5 mg/dL (2.5-4.9); T4 FREE 1.02 ng/dL (0.76-1.46)
[2022-09-03] MEDS: DILTIAZEM HCL 60MG TABLET PO SCH ×2 (09:55→21:48)
[2022-09-03] MEDS: LOSARTAN POTASSIUM 25 MG TABLET PO SCH (09:56)
[2022-09-03] MEDS: ACETAZOLAMIDE 250MG TABLET PO SCH (09:56)
[2022-09-03] MEDS: SERTRALINE HCL 50MG TABLET PO SCH (09:56)
[2022-09-03] MEDS: CARVEDILOL 12.5MG TABLET PO SCH ×2 (09:56→21:47)
[2022-09-03] MEDS: ENOXAPARIN 30MG/0.3ML SYR SUBCUT SCH (09:57)
[2022-09-03] MEDS: INSULIN GLARGINE 100 UNITS/ML SUBCUT SCH (10:01)
[2022-09-03 12:00] VITALS: BP 149/85
[2022-09-03 16:00] VITALS: BP 135/83
[2022-09-03 20:46] VITALS: BP 127/83
[2022-09-03] MEDS: ENOXAPARIN 40MG/0.4ML SYR SUBCUT SCH (21:47)
[2022-09-03] MEDS: ATORVASTATIN CALCIUM 40MG TABLET PO SCH (21:48)
[2022-09-04 00:26] VITALS: BP 154/81
[2022-09-04 04:00] VITALS: BP 143/74
[2022-09-04] MEDS: INSULIN LISPRO 100 UNITS/ML SUBCUT SCH ×7 (07:40→21:00)
[2022-09-04 08:00] VITALS: BP 136/75
[2022-09-04] MEDS: BLOOD SUGAR DIAGNOSTIC STRIP TEST SCH ×4 (08:14→22:21)
[2022-09-04] MEDS: DICLOFENAC SODIUM 1% GEL 50GM TOP SCH ×4 (08:46→22:43)
[2022-09-04] MEDS: SERTRALINE HCL 50MG TABLET PO SCH (08:46)
[2022-09-04] MEDS: CARVEDILOL 12.5MG TABLET PO SCH ×2 (08:46→22:12)
[2022-09-04] MEDS: LOSARTAN POTASSIUM 25 MG TABLET PO SCH (08:46)
[2022-09-04] MEDS: DILTIAZEM HCL 60MG TABLET PO SCH ×2 (08:46→22:12)
[2022-09-04] MEDS: ENOXAPARIN 40MG/0.4ML SYR SUBCUT SCH ×2 (08:46→22:13)
[2022-09-04] MEDS: ACETAZOLAMIDE 250MG TABLET PO SCH (08:46)
[2022-09-04] MEDS: INSULIN GLARGINE 100 UNITS/ML SUBCUT SCH (10:00)
[2022-09-04 12:00] VITALS: BP 148/71
[2022-09-04] MEDS: FUROSEMIDE 40MG TABLET PO SCH (12:23)
[2022-09-04 16:00] VITALS: BP 145/78
[2022-09-04 20:00] VITALS: BP 144/82
[2022-09-04] MEDS: ATORVASTATIN CALCIUM 40MG TABLET PO SCH (22:11)
[2022-09-05] VITALS (7 sets, daily range): BP systolic 109–151; BP diastolic 46–77
[2022-09-05] MEDS: BLOOD SUGAR DIAGNOSTIC STRIP TEST SCH ×4 (08:05→20:20)
[2022-09-05] MEDS: INSULIN LISPRO 100 UNITS/ML SUBCUT SCH ×7 (08:10→20:22)
[2022-09-05] MEDS: ACETAZOLAMIDE 250MG TABLET PO SCH (10:58)
[2022-09-05] MEDS: DICLOFENAC SODIUM 1% GEL 50GM TOP SCH ×4 (10:58→20:41)
[2022-09-05] MEDS: LOSARTAN POTASSIUM 25 MG TABLET PO SCH (10:59)
[2022-09-05] MEDS: DILTIAZEM HCL 60MG TABLET PO SCH ×2 (10:59→20:33)
[2022-09-05] MEDS: FUROSEMIDE 40MG TABLET PO SCH (10:59)
[2022-09-05] MEDS: ENOXAPARIN 40MG/0.4ML SYR SUBCUT SCH ×2 (11:00→20:34)
[2022-09-05] MEDS: INSULIN GLARGINE 100 UNITS/ML SUBCUT SCH (11:08)
[2022-09-05] MEDS: CARVEDILOL 12.5MG TABLET PO SCH ×2 (11:12→20:33)
[2022-09-05] MEDS: SERTRALINE HCL 50MG TABLET PO SCH (11:12)
[2022-09-05] MEDS: ATORVASTATIN CALCIUM 40MG TABLET PO SCH (20:33)
[2022-09-05] MEDS: HYDROCODONE/ACETAMINOPHEN 5/325MG TABLET PO PRN (20:38)
== END 2022-09-05 22:30 | disposition home or self-care (01) | DRG 69 ==
LOC: ER 00:01 → 7WST 02:44 → SUPCPDRO 07:34 → ER 09:56
PROVIDERS: ADMIT Internal Medicine; ATTEND Internal Medicine
DX: G45.9 Transient cerebral ischemic attack, unspecified (principal); I50.33 Acute on chronic diastolic (congestive) heart failure; Z68.43 Body mass index [BMI] 50.0-59.9, adult; J44.1 Chronic obstructive pulmonary disease with (acute) exacerbation; G47.33 Obstructive sleep apnea (adult) (pediatric); I11.0 Hypertensive heart disease with heart failure; M19.90 Unspecified osteoarthritis, unspecified site; E11.649 Type 2 diabetes mellitus with hypoglycemia without coma; E66.01 Morbid (severe) obesity due to excess calories; E78.5 Hyperlipidemia, unspecified; Z99.81 Dependence on supplemental oxygen; Z88.8 Allergy status to other drugs, medicaments and biological substances; Z79.899 Other long term (current) drug therapy; Z74.01 Bed confinement status; Z79.51 Long term (current) use of inhaled steroids; Z87.891 Personal history of nicotine dependence; Z82.49 Family history of ischemic heart disease and other diseases of the circulatory system; R47.81 Slurred speech
CPT/HCPCS: 36415; 71045; 80048; 80053; 80061; 80320; 82607; 82746; 82962; 83036; 83735; 83880; 84100; 84439; 84443; 84484; 85025; 87426; 93005; 93306; 93880; 93970; 94660; 97162; 97166; 99291; A6261; J1650; J1815; G0480